=== PATIENT | male | born 1980 | race Two or more races ===

== ENCOUNTER 2019-07-25 00:53 | Emergency (ER) | payer OTHER ==
[~2019-07-25] VITALS: Ht 175.3 cm; Wt 74.8 kg
[~2019-07-25 00:53] MED LIST: MOTRIN800 MG PO
[2019-07-25 01:14] VITALS: BP 115/89; Ht 175.3 cm; Wt 74.8 kg
== END 2019-07-25 01:53 | disposition home or self-care (01) ==
LOC: ED 00:53
DX: K08.89 Other specified disorders of teeth and supporting structures (principal); I11.0 Hypertensive heart disease with heart failure; I50.9 Heart failure, unspecified